=== PATIENT | female | born 1960 | race African-American/Black ===

== ENCOUNTER → 2020-12-21 | Outpatient (CLI) | payer MEDICARE, MEDICAID ==
[~2020-12-21] MED LIST: ASPI-1497 PO; CLOP-31 PO; GABA-532 PO; NORCO PO
== END | disposition home or self-care (01) ==
LOC: MRI 12:25
PROVIDERS: ATTEND Neurological Surgery
DX: M50.23 Other cervical disc displacement, cervicothoracic region (principal); M48.03 Spinal stenosis, cervicothoracic region; M89.38 Hypertrophy of bone, other site
CPT/HCPCS: 72141

== ENCOUNTER → 2021-01-03 | Outpatient (CLI) | payer MEDICARE, MEDICAID | END | disposition home or self-care (01) | LOC: MRI 10:00 | PROVIDERS: ATTEND Neurological Surgery | DX: M51.36 Other intervertebral disc degeneration, lumbar region (principal); M43.17 Spondylolisthesis, lumbosacral region; M48.07 Spinal stenosis, lumbosacral region | CPT/HCPCS: 72148 ==

== ENCOUNTER → 2021-06-12 | Outpatient (CLI) | payer MEDICARE, MEDICAID | END | disposition home or self-care (01) | LOC: MRI 13:06 | PROVIDERS: ATTEND Neurological Surgery | DX: M47.812 Spondylosis without myelopathy or radiculopathy, cervical region (principal); M48.02 Spinal stenosis, cervical region; M50.21 Other cervical disc displacement, high cervical region | CPT/HCPCS: 72141 ==

== ENCOUNTER 2024-03-27 14:06 | Emergency (ER) | payer MEDICARE, MEDICAID ==
[~2024-03-27] VITALS: Ht 167.6 cm; Wt 101.0 kg
[~2024-03-27 14:06] MED LIST changes: -CLOP-31 PO; +CRES10 MT; +RIVA20TA MT
[2024-03-27 14:20] VITALS: O2SAT 98
[2024-03-27 16:44] VITALS: BP 151/82; PULSE 77; RESP 18; TEMP 98.8
== END 2024-03-27 16:54 | disposition home or self-care (01) ==
LOC: ER 14:36
DX: S99.921A Unspecified injury of right foot, initial encounter (principal); M79.89 Other specified soft tissue disorders; Z98.890 Other specified postprocedural states; Z79.899 Other long term (current) drug therapy; W18.39XA Other fall on same level, initial encounter; Y93.89 Activity, other specified; Y92.89 Other specified places as the place of occurrence of the external cause; Y99.8 Other external cause status
CPT/HCPCS: 73630; 99283